=== PATIENT | male | born 1980 | race Caucasian/White ===

== ENCOUNTER → 2016-05-09 | Outpatient (REF) | payer BC | LOC: M LAB REF 16:37 | PROVIDERS: ATTEND Surgery | DX: L73.9 Follicular disorder, unspecified (principal) ==

== ENCOUNTER 2016-10-06 06:55 | Emergency (ER) | payer BC ==
[~2016-10-06] VITALS: Ht 182.9 cm; Wt 72.6 kg
[2016-10-06 07:01] VITALS: BP 148/72
[2016-10-06] MEDS ORDERED: TETRACAINE 0.5% OPHTH SOLN 4ML OU ONE (07:30)
[2016-10-06] MEDS ORDERED: FLUORESCEIN OPHTH 1 MG STRIP OU ONE (07:30)
[2016-10-06] MEDS ORDERED: ERYTHROMYCIN OPHTH OINT OS ONE (08:00)
[2016-10-06] MEDS ORDERED: ERYTOIN8 OS (08:00)
== END 2016-10-06 08:15 | disposition home or self-care (01) ==
LOC: M ED 08:14
DX: S05.12XA Contusion of eyeball and orbital tissues, left eye, initial encounter (principal); W31.1XXA Contact with metalworking machines, initial encounter; Y92.019 Unspecified place in single-family (private) house as the place of occurrence of the external cause; Y93.89 Activity, other specified; Y99.9 Unspecified external cause status; F17.200 Nicotine dependence, unspecified, uncomplicated

== ENCOUNTER 2021-02-02 05:11 | Emergency (ER) | payer BC, SELFPAY ==
[~2021-02-02] VITALS: Ht 182.9 cm; Wt 74.2 kg
[~2021-02-02 05:11] MED LIST: ERYTOIN8 OS
[2021-02-02] MEDS ORDERED: PANTOPRAZOLE 40MG VIAL (C9113 PER 1) IV ONE (06:55)
[2021-02-02] MEDS ORDERED: ONDANSETRON 4MG/2ML VIAL IV ONE (06:55)
[2021-02-02] MEDS ORDERED: GI COCKTAIL 50ML BTL(HYOSCYAMINE/MAALOX/LIDOCAINE VISCOUS)(1:3:1) PO ONE (06:55)
[2021-02-02] MEDS ORDERED: NS 1,000 ML IV ONE (06:55)
[2021-02-02 08:07] LABS: HEMATOCRIT 51.2 % (42.0-52.0); HEMOGLOBIN 16.9 g/dl (13.5-17.5); MEAN CORPUSCULAR HEMOGLOBIN 31.2 pg (27.0-33.0); MEAN CORPUSCULAR VOLUME 94.5 fl (80.0-96.0); PLATELET COUNT, AUTOMATED 289 10^3/uL (150-450); RED BLOOD COUNT 5.42 10^6/uL (4.30-6.10); WHITE BLOOD COUNT 14.8 10^3/uL (4.0-10.0)
[2021-02-02 08:36] LABS: ALBUMIN 3.5 GM/DL (3.2-5.2); ALT/SGPT 23 U/L (12-78); BILIRUBIN,DIRECT < 0.1 MG/DL (0.0-0.2); BILIRUBIN,TOTAL 0.2 MG/DL (0.2-1.0); BLOOD UREA NITROGEN 10 MG/DL (7-18); CALCIUM LEVEL 9.1 MG/DL (8.5-10.1); CARBON DIOXIDE LEVEL 29 MEQ/L (21-32); CHLORIDE LEVEL 106 MEQ/L (98-107); CK-MB VALUE MASS < 1.0 NG/ML (<3.6); CPK CREATINE PHOSPHOKINASE 90 U/L (39-308); CREATININE FOR GFR 0.81 MG/DL (0.70-1.30); GLOMERULAR FILTRATION RATE > 60.0 (>60); GLUCOSE, FASTING 79 MG/DL (70-100); LIPASE 149 U/L (73-393); MB/CK RELATIVE INDEX 1.11 (< OR =4); POTASSIUM SERUM 4.3 MEQ/L (3.5-5.1); SODIUM LEVEL 140 MEQ/L (136-145); TOTAL PROTEIN 7.5 GM/DL (6.4-8.2); TROPONIN I < 0.02 NG/ML (< 0.10)
[2021-02-02 08:45] LABS: RSV AMPLIFICATION NEGATIVE (NEGATIVE)
--- NOTE | 2021-02-02 08:52 | REP ---
INDICATION: Abdominal Pain. COMPARISON: None. TECHNIQUE: Three views including upright chest radiograph. FINDINGS: Upright chest radiograph shows no evidence of infiltrate or free subdiaphragmatic air. Heart is not enlarged. There is old posttraumatic deformity at the AC joint and distal clavicle on the right. No other bony abnormality. Supine and erect views of the abdomen demonstrate a normal bowel gas pattern. The psoas margins and the flank stripes are intact. There is no evidence of mass, organomegaly, or pathologic calcification. IMPRESSION: Negative acute abdominal series. <Electronically signed by Serge Oconnell > 02/02/21 08
[2021-02-02 09:02] LABS: ATYPICAL LYMPH 2 % (0-5); BASOPHILS 1 % (0-1); EOSINOPHILS 1 % (0-3); LYMPHOCYTES 21 % (16-44); MONOCYTES 5 % (0-5); NEUTROPHILS 70 % (28-66); PLATELET ESTIMATE NORMAL (NORMAL)
[2021-02-02] MEDS ORDERED: ONDA4TAB6 PO (09:32)
[2021-02-02] MEDS ORDERED: OMEP40CA4 PO (09:32)
[2021-02-02 09:35] VITALS: BP 119/72
--- NOTE | 2021-02-03 07:39 | ECGEPIP ---
[facility] [place] - ED Test Date: 2021-02-02 Pat Name: GERALD REYES Department: Room: - Gender: Male [employer]ist: JAYNAJANET : 1980 Requested By: SUMAN Murphy PA-C Order Number: [id number] Reading MD: Flor Cabral Measurements Intervals [place] Rate: 66 P: 63 NV: 160 QRS: 94 QRSD: 88 T: 61 QT: 394 QTc: 413 Interpretive Statements Normal sinus rhythm Rightward axis NSTTW abnormalities No prior Electronically Signed on 02-03-2021 7:38:58 EDT by Flor Cabral
== END 2021-02-02 10:04 | disposition home or self-care (01) ==
LOC: M ED 05:11
DX: K29.70 Gastritis, unspecified, without bleeding (principal); R11.2 Nausea with vomiting, unspecified; J06.9 Acute upper respiratory infection, unspecified; B34.9 Viral infection, unspecified; R05 Cough; F17.200 Nicotine dependence, unspecified, uncomplicated
CPT/HCPCS: 36415; 74021; 80048; 80076; 81001; 82550; 82553; 83690; 84484; 85025; 87631; 87880; 93005; 96361; 96374; 96375; 99284; C9113; J2405

== ENCOUNTER → 2021-10-31 | Outpatient (REF) | payer SELFPAY ==
[~2021-10-31] MED LIST changes: +OMEP40CA4 PO; +ONDA4TAB6 PO
== END ==
LOC: M LAB REF 21:33
PROVIDERS: ATTEND Physician Assistant Medical
DX: L02.416 Cutaneous abscess of left lower limb (principal)